=== PATIENT | female | born 1955 | race Caucasian/White ===

== ENCOUNTER 2018-01-04 04:05 | Day surgery (SDC) | payer BC ==
[2018-01-02 12:56] LABS: BASOPHIL % 0.2 % (0.0-0.2); EOSINOPHIL % 0.2 % (0.0-5.0); HEMOGLOBIN 12.8 g/dL (12.0-15.0); LYMPHOCYTES # 1.1 10^3/uL (1.0-4.8); LYMPHOCYTES % 25.2 % (24.0-44.0); MEAN CELL HGB 27.9 pg (26-34); MEAN CELL HGB CONCENTRATION 31.8 g/dL (33-37); MEAN PLATELET VOLUME 10.1 fL (7.8-11.0); MONOCYTES # 0.5 10^3/uL (0.3-0.8); MONOCYTES % 10.2 % (5.0-12.0); NEUTROPHIL # 2.8 10^3/uL (1.8-7.7); RED CELL DISTRIBUTION WIDTH 14.3 % (11.5-14.5); WHITE BLOOD CELL 4.4 10^3/uL (4.5-11.0)
[2018-01-02 12:58] VITALS: BP 133/83
[2018-01-02 13:20] LABS: CALCIUM 9.3 mg/dL (8.4-10.5); CARBON DIOXIDE 28.3 mmol/L (20.0-32)
--- NOTE | 2018-01-02 19:27 | PCM.EKG ---
[facility] Test Date: 2018-01-02 Test Time: 11:34:22 Pat Name: RENARD AYOUB Department: Room: Gender: F Language Pathologist: MARIANA : 1955 Requested By: JOSEFA WISE Order Number: [id number] Reading MD: Measurements Intervals [place] Rate: 56 P: 49 HI: 138 QRS: 59 QRSD: 92 T: 56 QT: 440 QTc: 424 Interpretive Statements Sinus bradycardia Otherwise normal ECG No previous ECG available for comparison Please click the below link to view image of tracing.
[2018-01-04] VITALS (7 sets, daily range): BP systolic 120–139; BP diastolic 74–84
[~2018-01-04] VITALS: Ht 169.7 cm; Wt 89.8 kg
[~2018-01-04 04:05] MED LIST: ASPI-484 PO; CIPR500T86 PO; DIPH25CA57 PO; FLAV100T PO; HYDR-3101 PO; LISI1TAB5 PO; PANT40TA5 PO; PRAV20TA2 PO; TRAM50TA PO
[2018-01-04] MEDS ORDERED: LACTATED RINGERS 1,000 ML ONE (05:03)
[2018-01-04] MEDS ORDERED: LASIX ONE (05:11)
[2018-01-04] MEDS ORDERED: LACTATED RINGERS 1,000 ML IV SCH ×2 (06:00→09:00)
[2018-01-04] MEDS ORDERED: LASIX IV ONE ×3 (06:00→09:00)
[2018-01-04] MEDS ORDERED: TORADOL ONE (06:33)
[2018-01-04] MEDS ORDERED: SUBLIMAZE ONE (06:33)
[2018-01-04] MEDS ORDERED: DECADRON ONE (06:33)
[2018-01-04] MEDS ORDERED: DIPRIVAN IV ONE (06:33)
[2018-01-04] MEDS ORDERED: ZOFRAN ONE (06:33)
[2018-01-04] MEDS ORDERED: LIDOCAINE 2% VIAL ONE (06:34)
[2018-01-04] MEDS ORDERED: SUBLIMAZE IV PRN (07:30)
[2018-01-04] MEDS ORDERED: ACET-685 PO (08:44)
[2018-01-04] MEDS ORDERED: TAMS0.4C2 PO (08:44)
[2018-01-04] MEDS ORDERED: NORCO 7.5MG PO PRN (09:00)
[2018-01-04] MEDS ORDERED: LASIX IV SCH (09:00)
--- NOTE | 2018-01-04 11:59 | OPH ---
DATE OF SURGERY: 01/04/2018 PREOPERATIVE DIAGNOSIS: Large calculus, right renal pelvis. FINAL DIAGNOSIS: Large calculus, right renal pelvis. PROCEDURES: Right ESWL. DESCRIPTION OF PROCEDURE: The patient was brought to the lithotripsy room, was put in supine position on the lithotripsy table. A right preop renal ultrasound was initially performed which revealed a 9 mm stone in the right renal pelvis with some mild hydronephrosis. After the patient was given an LMA general anesthesia and after localization of the stone with the use of the fluoroscopy and an ultrasound, a right ESWL was then performed using a [employer] Compact Delta II Lithotripter. A total of 2500 shockwaves were delivered to the stones in the right renal pelvis. After fragmentation of the stone as noted in the ultrasound, the procedure was terminated. The patient was awakened, was transferred to the recovery room in stable condition. Ventura Connolly MD DR: FARIDEH/parmjit JOB# [id number]
== END 2018-01-04 09:35 | disposition home or self-care (01) | DRG 694 ==
LOC: SDC 04:05
PROVIDERS: ATTEND Urology
DX: N20.0 Calculus of kidney (principal); K21.9 Gastro-esophageal reflux disease without esophagitis; E78.5 Hyperlipidemia, unspecified; E66.9 Obesity, unspecified; G47.33 Obstructive sleep apnea (adult) (pediatric); Z88.1 Allergy status to other antibiotic agents; Z79.899 Other long term (current) drug therapy; Z98.890 Other specified postprocedural states; Z68.31 Body mass index [BMI] 31.0-31.9, adult
CPT/HCPCS: 36415; 50590; 80048; 85025; 85610; 85730; 93005; J1100; J1885; J2001; J2405; J3010; J3490; J7120; J1940

== ENCOUNTER 2018-09-13 02:53 | Day surgery (SDC) | payer BC ==
[2018-08-22 17:09] LABS: EOSINOPHIL % 0.7 % (0.0-5.0); HEMOGLOBIN 12.1 g/dL (12.0-15.0); LYMPHOCYTES % 21.5 % (24.0-44.0); MEAN CELL HGB 28.1 pg (26-34); MEAN CELL HGB CONCENTRATION 31.9 g/dL (33-37); MEAN CORP VOLUME 88.1 fL (78-100); MEAN PLATELET VOLUME 9.3 fL (7.8-11.0); MONOCYTES # 0.5 10^3/uL (0.3-0.8); MONOCYTES % 10.1 % (5.0-12.0); NEUTROPHIL # 3.1 10^3/uL (1.8-7.7); NEUTROPHILS % 67.7 % (41.0-85.0); RED CELL DISTRIBUTION WIDTH 14.2 % (11.5-14.5); WHITE BLOOD CELL 4.6 10^3/uL (4.5-11.0)
[2018-08-22 17:23] LABS: CARBON DIOXIDE 28.6 mmol/L (20.0-32)
[~2018-09-13] VITALS: Ht 169.7 cm; Wt 89.8 kg
[2018-09-13] VITALS (9 sets, daily range): BP systolic 118–142; BP diastolic 60–84
[~2018-09-13 02:53] MED LIST changes: +ACET-685 PO; +ATOR10TA PO; +TAMS0.4C2 PO
[2018-09-13] MEDS ORDERED: LACTATED RINGERS 1,000 ML ONE ×2 (06:06→11:11)
[2018-09-13] MEDS ORDERED: LASIX ONE (06:06)
[2018-09-13] MEDS ORDERED: DECADRON ONE (06:46)
[2018-09-13] MEDS ORDERED: ZOFRAN ONE (06:47)
[2018-09-13] MEDS ORDERED: DIPRIVAN IV ONE (06:47)
[2018-09-13] MEDS ORDERED: SUBLIMAZE ONE (06:47)
[2018-09-13] MEDS ORDERED: VERSED ONE (06:47)
[2018-09-13] MEDS ORDERED: LIDOCAINE 2% VIAL ONE (06:48)
[2018-09-13] MEDS ORDERED: LACTATED RINGERS 1,000 ML IV SCH ×2 (07:00→09:00)
[2018-09-13] MEDS ORDERED: BENADRYL IV PRN (08:00)
[2018-09-13] MEDS ORDERED: VENTOLIN IH PRN (08:00)
[2018-09-13] MEDS ORDERED: PHENERGAN IV PRN (08:00)
[2018-09-13] MEDS ORDERED: SUBLIMAZE IV PRN (08:00)
[2018-09-13] MEDS ORDERED: ZOFRAN IV PRN (08:00)
[2018-09-13] MEDS ORDERED: LASIX IV ONE (09:00)
[2018-09-13] MEDS ORDERED: LASIX IV SCH (09:00)
[2018-09-13] MEDS ORDERED: NORCO 7.5MG PO PRN (09:00)
[2018-09-13] MEDS ORDERED: TRAM50TA PO (09:02)
[2018-09-13] MEDS ORDERED: TAMS0.4C2 PO (09:02)
--- NOTE | 2018-09-13 09:04 | OPH ---
DATE OF SURGERY: 09/13/2018 PREOPERATIVE DIAGNOSIS: Right renal calculi. FINAL DIAGNOSIS: Right renal calculi. PROCEDURES: Right ESWL. DESCRIPTION OF PROCEDURE: The patient was brought to the lithotripsy room, was put in supine position on lithotripsy table. A right preoperative renal ultrasound was initially performed, which revealed a calculus in the middle pole of the right kidney measuring 6.7 mm in diameter and another stone in the mid lower pole measuring 3.9 mm in diameter respectively. There was no evidence of mass or cyst or hydronephrosis noted. After the patient was given an LMA general anesthesia and after localization of the stone with the use of an ultrasound and a C-arm fluoroscopy, a right ESWL was then performed using a [employer] Compact Delta II Lithotripter. A total of 2000 shockwaves were delivered to the stones in different locations in the right kidney under ultrasound guidance. After fragmentation of the stone as noted in the ultrasound, the procedure was terminated. The patient was then awakened, was transferred to the recovery room in stable condition. Ventura Connolly MD DR: FARIDEH/parmjit JOB# [id number]
== END 2018-09-13 10:10 | disposition home or self-care (01) ==
LOC: SDC 02:53
PROVIDERS: ATTEND Urology
DX: N20.0 Calculus of kidney (principal); I10 Essential (primary) hypertension; E78.5 Hyperlipidemia, unspecified; K21.9 Gastro-esophageal reflux disease without esophagitis; G47.33 Obstructive sleep apnea (adult) (pediatric); E66.9 Obesity, unspecified; Z68.31 Body mass index [BMI] 31.0-31.9, adult; Z79.899 Other long term (current) drug therapy; Z88.1 Allergy status to other antibiotic agents; Z98.890 Other specified postprocedural states; Z79.82 Long term (current) use of aspirin; Z83.3 Family history of diabetes mellitus; Z82.49 Family history of ischemic heart disease and other diseases of the circulatory system; Z80.0 Family history of malignant neoplasm of digestive organs; Z82.5 Family history of asthma and other chronic lower respiratory diseases
CPT/HCPCS: 36415; 50590; 80051; 82565; 84520; 85025; 85610; 85730; 93005; J1100; J2001; J2250; J2405; J3010; J3490; J7120 ×2; J1940